=== PATIENT | female | born 2000 | race American Indian/Alaskan Native ===

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

== ENCOUNTER 2018-08-25 21:24 | Outpatient (CLI) | payer MEDICAID ==
[2018-08-25] MEDS ORDERED: LACTATED RINGERS 1,000 ML IV ONE (21:56)
[2018-08-25 22:12] LABS: Bilirubin,Urine NEG (Negative); Blood,Urine NEG (Negative); Color,Urine Yellow (Yellow); Protein,Urine <15 mg/dL mg/dL (Negative); Urobilinogen,Urine < 2.0 mg/dL (<2.0)
[2018-08-25] MEDS ORDERED: BRETHINE ONE (23:20)
[2018-08-25] MEDS: BRETHINE SUB-Q SCH (23:28)
[2018-08-25] MEDS ORDERED: LACTATED RINGERS 1,000 ML IV SCH (23:45)
[2018-08-26] MEDS: BRETHINE SUB-Q SCH
[2018-08-26 19:47] VITALS: BP 127/69
[2018-08-26] MEDS ORDERED: BRETHINE ONE (23:00)
== END 2018-08-26 01:30 | disposition home or self-care (01) ==
LOC: TRG 21:24
PROVIDERS: ATTEND Obstetrics & Gynecology
DX: O26.893 Other specified pregnancy related conditions, third trimester (principal); R10.9 Unspecified abdominal pain; M54.5 Low back pain; Z3A.33 33 weeks gestation of pregnancy
CPT/HCPCS: 59025; 81001; 96360; 96361; 96372; J3105; J7120

== ENCOUNTER 2018-08-27 12:33 | Outpatient (CLI) | payer MEDICAID ==
[2018-08-27] MEDS ORDERED: LACTATED RINGERS 1,000 ML IV ONE ×2 (12:51→14:11)
[2018-08-27 13:30] LABS: Bacteria,Urine 1+ /HPF (Negative); Bilirubin,Urine NEG (Negative); Blood,Urine NEG (Negative); Color,Urine Yellow (Yellow); Mucus,Urine FEW /HPF; Protein,Urine <15 mg/dL mg/dL (Negative); Urobilinogen,Urine < 2.0 mg/dL (<2.0)
[2018-08-27] MEDS ORDERED: ceFAZolin 2 GM in NACL 0.9% 100 ML IV ONE (14:55)
[2018-08-27] MEDS ORDERED: PROCARDIA*For Tocolysis only PO SCH ×2 (15:00→17:00)
[2018-08-27] MEDS ORDERED: ANCEF/STERILE WATER 2 GM/20 ML 2 GM/20 ML SYRINGE IV ONE (16:00)
[2018-08-27 18:00] VITALS: BP 123/81
== END 2018-08-27 18:23 | disposition home or self-care (01) ==
LOC: TRG 12:33
PROVIDERS: ATTEND Obstetrics & Gynecology
DX: O62.9 Abnormality of forces of labor, unspecified (principal); O99.513 Diseases of the respiratory system complicating pregnancy, third trimester; J45.909 Unspecified asthma, uncomplicated; O99.343 Other mental disorders complicating pregnancy, third trimester; F31.9 Bipolar disorder, unspecified; O99.613 Diseases of the digestive system complicating pregnancy, third trimester; K21.9 Gastro-esophageal reflux disease without esophagitis; Z3A.33 33 weeks gestation of pregnancy
CPT/HCPCS: 81001; 96360; 96361; J7120

== ENCOUNTER 2018-09-09 22:57 | Observation (INO) | payer MEDICAID ==
[2018-09-09] MEDS ORDERED: LACTATED RINGERS 1,000 ML IV ONE (23:17)
[2018-09-09 23:43] LABS: Bilirubin,Urine NEG (Negative); Blood,Urine NEG (Negative); Color,Urine Straw (Yellow); Protein,Urine <15 mg/dL mg/dL (Negative); Urobilinogen,Urine < 2.0 mg/dL (<2.0)
--- NOTE | 2018-09-10 01:04 | Ultrasound Report ---
PROCEDURE: US OB LIMITED TECHNIQUE: A limited transabdominal OB sonogram was obtained for evaluation of the placenta. HISTORY: s/p fall- lower left abdominal pain COMPARISONS: None FINDINGS: The placenta is anterior in position and is grade 1. There is no evidence of placental abruption or i njury.. The fetus is in cephalic presentation. The heart rate is 140 BPM. IMPRESSION: No evidence of placental abruption or injury.. This document is electronically signed by Trey Lima MD., Sep 10 2018 01:02:12 AM ET
--- NOTE | 2018-09-10 01:05 | Ultrasound Report ---
PROCEDURE: US OB BPP WO NON-STRESS TECHNIQUE: A limited OB sonogram was obtained for evaluation of the biophysical profile. HISTORY: s/p fall- lower left abdominal pain COMPARISONS: None FINDINGS: For breathing movements, a score of 2 out of 2 was obtained. For movements, a score of 2 out of 2 was obtained. For posture and tone, a score of 2 out of 2 was obtained. Qualitative amniotic fluid, a score of 2 out of 2 was obtained. The heart rate is 140 BPM. IMPRESSION: Biophysical profile score is 8 out of 8.. This document is electronically signed by Trey Lima MD., Sep 10 2018 01:03:23 AM ET
[2018-09-10] MEDS ORDERED: COLACE PO PRN (01:07)
[2018-09-10] MEDS ORDERED: TYLENOL PO PRN (01:07)
[2018-09-10] MEDS ORDERED: PROCARDIA*For Tocolysis only PO SCH (02:00)
[2018-09-10] MEDS ORDERED: LACTATED RINGERS 1,000 ML IV SCH (02:00)
[2018-09-10 02:01] LABS: Basophils % (Auto) 0.3 % (0.0-1.8); Eosinophils % (Auto) 0.6 % (0.0-4.3); Hematocrit 35.7 % (30.3-42.9); Hemoglobin 12.1 gm/dl (10.1-14.3); Lymphocytes # (Auto) 1.9 K/mm3 (1.2-5.4); Lymphocytes % (Auto) 26.9 % (13.4-35.0); Mean Corpuscular HGB Conc 34 % (30-34); Mean Corpuscular Volume 92 fl (79-97); Monocytes # (Auto) 0.6 K/mm3 (0.0-0.8); Monocytes % (Auto) 8.9 % (0.0-7.3); Platelet Count 190 K/mm3 (140-440); Red Blood Count 3.86 M/mm3 (3.65-5.03); Red Cell Distribution Width 14.5 % (13.2-15.2)
[2018-09-10 09:56] VITALS: BP 129/80
[2018-09-10] MEDS ORDERED: PRENATAL VITAMIN PO SCH (10:00)
== END 2018-09-10 10:09 | disposition left against medical advice (07) ==
LOC: TRG 22:57 → LD 09-10 01:55
PROVIDERS: ADMIT Obstetrics & Gynecology; ATTEND Obstetrics & Gynecology
DX: O26.893 Other specified pregnancy related conditions, third trimester (principal); R10.30 Lower abdominal pain, unspecified; Z3A.35 35 weeks gestation of pregnancy
CPT/HCPCS: 36415; 76815; 76819; 81001; 85025; 86592; 86850; 86870; 86900; 86901; G0378; J7120

== ENCOUNTER 2018-09-23 13:23 | Inpatient (IN) | payer MEDICAID ==
[2018-09-23] MEDS ORDERED: LACTATED RINGERS 1,000 ML ONE ×2 (14:05→14:57)
[2018-09-23] MEDS ORDERED: AMPICILLIN/NS 2 GM/100 ML 0 GM/0 ML BAG IV ONE (14:05)
[2018-09-23 14:32] LABS: Hemoglobin 13.1 gm/dl (10.1-14.3); Mean Corpuscular HGB Conc 34 % (30-34); Mean Corpuscular Volume 92 fl (79-97); Red Blood Count 4.15 M/mm3 (3.65-5.03); Red Cell Distribution Width 14.9 % (13.2-15.2)
[2018-09-23] MEDS ORDERED: AMPICILLIN/NS 2 GM/100 ML 2 GM/100 ML BAG IV ONE ×2 (14:35→17:32)
[2018-09-23] MEDS ORDERED: SUBLIMAZE IV PRN (14:39)
[2018-09-23 15:17] LABS: Platelet Count 201 K/mm3 (140-440)
[2018-09-23] MEDS ORDERED: NARCAN 2 MG/2 ML IV PRN (15:19)
--- NOTE | 2018-09-23 15:24 | Anesthesia Consultation ---
Anesthesia Consult and Med Hx - Airway Anesthetic Teeth Evaluation: Good ROM Head & Neck: Adequate Mental/Hyoid Distance: Adequate Mallampati Class: Class I Intubation Access Assessment: Probably Good - Pulmonary Exam CTA: Yes - Cardiac Exam Cardiac Exam: RRR - Pre-Operative Health Status ASA Pre-Surgery Classification: ASA2 Proposed Anesthetic Plan: Epidural - Pulmonary Hx Asthma: Yes (last asthma attack age 13) COPD: No - Cardiovascular System Hx Hypertension: No - Central Nervous System Hx Seizures: No Hx Psychiatric Problems: Yes (depression) - Endocrine Hx Renal Disease: No Hx End Stage Renal Disease: No Hx Hypothyroidism: No Hx Hyperthyroidism: No - Hematic Hx Anemia: No Hx Sickle Cell Disease: No - Other Systems Hx Alcohol Use: No - Additional Comments Anesthesia Medical History Comments: jerricas
--- NOTE | 2018-09-23 15:24 | Anesthesia Day of Surgery ---
Anesthesia Day of Surgery - Day of Surgery Patient Examined: Yes Patient H&P Reviewed: Yes Patient is NPO: Yes Beta Blockers: No Cardiac Clearance: No Pulmonary Clearance: No Marquise's Test: N/A
[2018-09-23] MEDS ORDERED: MARCAINE 0.25% INFILTRATI ONE (15:27)
--- NOTE | 2018-09-23 15:32 | History and Physical Report ---
History of Present Illness Date of admission: 09/23/18 13:31 Chief complaint: uterine contractions History of present illness: 17yo at 37 3/7weeks presented to L&D in labor dilated /-2, bulging membranes. She reports good movement and no loss of fluid. Blood show is evident on exam. She is a patient of [facility]. This has been complicated with IUGR. The patient states her estimated weight on US was 5lb 8oz. She is GBS+ and HSV2. She denies any recent outbreaks. Past History - Obstetrical History : 2 Medications and Allergies Allergies Allergy/AdvReac Type Severity Reaction Status Date / Time No Known Allergies Allergy Verified 09/23/18 14:10 Home Medications Medication Instructions Recorded Confirmed Last Taken Type Vit,Calc76/Iron/Folic 1 tab PO DAILY 08/25/18 08/25/18 09/09/18 History [Pnv 29-1 Tablet] NIFEdipine [Procardia] 20 mg PO 09/09/18 09/08/18 History Active Meds: Active Medications Ephedrine Sulfate (Ephedrine Sulfate) 10 mg IV Q2M PRN PRN Reason: Hypotension Fentanyl (Sublimaze) 100 mcg IV Q2H PRN PRN Reason: Labor Pain Last Admin: 09/23/18 14:50 Dose: 100 mcg Documented by: Fentanyl/Bupivacaine/Sodium Chlor (Fentanyl-Bupiv 2 Mcg/Ml-0.125%) 200 mcg in 100 mls @ 12 mls/hr EPIDURAL TITR MARVIN; Protocol Naloxone HCl (Narcan 2 Mg/2 Ml) 0.2 mg IV Q5M PRN PRN Reason: Respiratory sedation - Vital Signs Vital signs: Vital Signs Temp Pulse Resp BP 98.0 F 81 20 135/89 09/23/18 14:10 09/23/18 14:10 09/23/18 14:10 09/23/18 14:10 Temp Pulse Resp BP Pulse Ox 98.0 F 93 H 20 135/89 98 09/23/18 14:10 09/23/18 15:26 09/23/18 14:50 09/23/18 14:34 09/23/18 15:26 - Physical Exam Vulva: both: normal (no vesicular lesions or ulcerations noted ) - Obstetrical FHR: auscultation normal Cervical Dilatation: 6 Cervical Effacement Percentage: 80 station: -2 Uterine Contraction Pattern: Regular Results Result Diagrams: 09/23/18 13:40 All other labs normal. Assessment and Plan - Patient Problems (1) 37 weeks gestation of Current Visit: Yes Status: Acute Plan to address problem: Routine labs IVF Pelvic exam indicated no vaginal lesions. Anticipate (2) IUGR (intrauterine growth restriction) Current Visit: Yes Status: Acute Plan to address problem: Plan NICU present for delivery. (3) Positive GBS test Current Visit: Yes Status: Acute Plan to address problem: Ampicillin ordered. (4) Teen Current Visit: Yes Status: Acute
[2018-09-23] MEDS ORDERED: fentaNYL-BUPIV 2 MCG/ML-0.125% 200 MCG/100 ML BAG EPIDURAL SCH (16:00)
[2018-09-23] MEDS ORDERED: XYLOCAINE 2% INFILTRATI ONE (17:32)
[2018-09-23] MEDS ORDERED: BRETHINE SUB-Q PRN (17:32)
[2018-09-23] MEDS ORDERED: MINERAL OIL PO PRN (17:32)
[2018-09-23] MEDS ORDERED: LACTATED RINGERS 1,000 ML IV SCH ×2 (18:00)
[2018-09-23] MEDS ORDERED: AMPICILLIN/NS 1 GM/50 ML 1 GM/50 ML BAG IV SCH (19:00)
[2018-09-23] MEDS ORDERED: XYLOCAINE 2%/ EPI 1:200,000 INFILTRATI ONE (19:41)
--- NOTE | 2018-09-23 22:09 | Procedure Note ---
OB Delivery Note - Delivery Surgeon: RICHARD GREEN Estimated blood loss: other (150cc) - Vaginal Delivery presentation: vertex Delivery position: OA Delivery induction: none Delivery augmentation: rupture of membranes Delivery monitor: external FHT Route of delivery: Delivery placenta: uterine exploration, other (small amount of trailing membrane retracted into uterus with attempt of manual removal) Episiotomy: none Delivery laceration: none Anesthesia: epidural Delivery comments: delivered, bulb suctioned and noted to spontaneously cry. scalp electrode cut at distal cord. Male infant placed on maternal abdomen and dried by nursing staff. Infant vigorous. Cord clamped x 2 and cut by maternal grandmother. Patient and grandmother made aware of trailing membranes on exam. Intrauterine bimanual exam done and no membranes palpated or recovered from uterus. Will place on Methergine oral dose to facilitate delivery of any retained membranes. - A at 1 minute: 8 at 5 minutes: 9 Infant Gender: Male (Weight 5lb 11 oz, 2592g)
[2018-09-23] MEDS: PITOCin/NS 20 UNIT/1000ML DRIP 20 UNITS/1,000 ML BAG IV SCH ×2 (22:15→23:09)
[2018-09-23] MEDS ORDERED: TUCKS PAD TP PRN (22:20)
[2018-09-23] MEDS ORDERED: LANSINOH TP PRN (22:20)
[2018-09-23] MEDS ORDERED: BENADRYL PO PRN (22:20)
[2018-09-23] MEDS ORDERED: DULCOLAX PR PRN (22:20)
[2018-09-23] MEDS ORDERED: TYLENOL PO PRN (22:20)
[2018-09-23] MEDS ORDERED: MILK OF MAGNESIA PO PRN (22:20)
[2018-09-23] MEDS ORDERED: PHENERGAN PO PRN (22:20)
[2018-09-23] MEDS ORDERED: ZOFRAN IV PRN (22:20)
[2018-09-23] MEDS ORDERED: COLACE PO PRN (22:20)
[2018-09-23] MEDS ORDERED: SODIUM CHLORIDE FLUSH SYRINGE 10 ML IV PRN (23:00)
[2018-09-24] MEDS: IBUPROFEN PO SCH ×4 (00:26→18:44)
[2018-09-24] MEDS: METHERGINE PO SCH ×3 (00:27→06:17)
--- NOTE | 2018-09-24 10:13 | Progress Note ---
Assessment and Plan - Patient Problems (1) (normal spontaneous vaginal delivery) Current Visit: Yes Status: Acute Plan to address problem: Continue routine PP orders Anticipate d/c home in 24-48 hrs (2) Teen Current Visit: Yes Status: Acute Subjective - Subjective Date of service: 09/24/18 Principal diagnosis: Normal labor Interval history: See admission H & P and OB delivery summary Patient reports: appetite normal, voiding normally, pain well controlled, flatus, ambulating normally, other (States that bleeding is minimal.), no bowel movement [place]: doing well, bottle feeding (and bottlefeeding) Objective - Vital Signs Latest vital signs: Vital Signs Temp Pulse Resp BP BP Pulse Ox 09/24/18 08:34 98.2 F 71 18 119/81 100 09/24/18 03:45 98.2 F 88 18 118/60 09/23/18 23:40 98.8 F 88 18 143/85 99 09/23/18 23:11 90 99 09/23/18 23:06 94 H 99 09/23/18 23:01 87 99 09/23/18 22:56 94 H 99 09/23/18 22:51 96 H 99 09/23/18 22:46 99 H 99 09/23/18 22:41 111 H 98 09/23/18 22:36 95 H 144/80 98 09/23/18 22:31 106 H 98 09/23/18 22:26 105 H 98 09/23/18 22:21 109 H 141/91 99 09/23/18 22:16 102 H 99 09/23/18 22:13 100 H 144/99 09/23/18 22:11 98.4 F 97 H 18 144/99 100 09/23/18 22:06 119 H 99 09/23/18 22:05 110 H 129/101 09/23/18 21:51 50 L 80 L 09/23/18 21:42 110 H 99 09/23/18 21:37 97 H 100 09/23/18 21:36 101 H 154/97 09/23/18 21:32 106 H 100 09/23/18 21:27 104 H 100 09/23/18 21:22 108 H 100 09/23/18 21:17 109 H 99 09/23/18 21:12 113 H 99 09/23/18 21:07 116 H 134/93 100 05/14/19 21:02 109 H 100 09/23/18 20:57 102 H 100 05 20:52 102 H 99 09/23/18 20:47 107 H 100 09/23/18 20:42 104 H 99 09/23/18 20:37 101 H 99 09/23/18 20:34 101 H 133/77 09/23/18 20:32 104 H 99 09/23/18 20:27 100 H 100 09/23/18 20:22 89 100 05 20:17 93 H 100 09/23/18 20:12 102 H 98 09/23/18 20:07 104 H 99 09/23/18 20:06 104 H 126/79 09/23/18 20:02 106 H 99 09/23/18 19:57 105 H 98 09/23/18 19:52 95 H 100 09/23/18 19:47 120 H 99 09/23/18 19:42 102 H 100 09/23/18 19:39 100 H 82 L 09/23/18 19:37 118 H 99 09/23/18 19:32 98 H 99 09/23/18 19:31 98.0 F 101 H 18 134/84 99 09/23/18 19:30 83 134/84 09/23/18 19:18 104 H 99 09/23/18 19:16 78 126/88 87 09/23/18 19:13 120 H 98 09/23/18 19:08 104 H 99 09/23/18 19:03 107 H 99 09/23/18 19:00 87 130/91 09/23/18 18:58 110 H 100 09/23/18 18:53 101 H 99 09/23/18 18:48 102 H 99 09/23/18 18:45 96 H 138/88 09/23/18 18:43 103 H 98 05 18:38 88 100 05 18:33 90 99 05 18:29 105 H 144/97 09/23/18 18:28 100 H 96 09/23/18 18:23 89 100 0514 18:18 89 99 09/23/18 18:15 93 H 152/85 09/23/18 18:13 85 100 05 18:09 96.7 F L 09/23/18 18:08 82 100 09/23/18 18:03 90 100 09/23/18 18:00 86 136/80 09/23/18 17:58 86 99 09/23/18 17:53 72 100 09/23/18 17:48 79 99 09/23/18 17:41 82 100 09/23/18 17:36 84 100 09/23/18 17:31 76 100 09/23/18 17:30 72 125/64 09/23/18 17:28 88 93 09/23/18 17:26 83 100 09/23/18 17:21 80 100 09/23/18 17:16 71 100 09/23/18 17:14 77 126/81 09/23/18 17:11 77 100 09/23/18 17:06 82 100 09/23/18 17:01 61 100 09/23/18 16:59 62 118/70 09/23/18 16:56 78 100 09/23/18 16:51 61 100 09/23/18 16:46 95 H 100 09/23/18 16:44 80 135/78 09/23/18 16:41 76 100 09/23/18 16:36 79 100 09/23/18 16:31 91 H 100 09/23/18 16:26 92 H 100 09/23/18 16:24 101 H 120/79 09/23/18 16:21 107 H 123/77 98 09/23/18 16:16 99 H 98 09/23/18 16:14 97 H 113/65 09/23/18 16:11 105 H 100 09/23/18 16:09 100 H 105/59 09/23/18 16:06 111 H 99 09/23/18 16:05 103 H 117/79 09/23/18 16:01 104 H 108/64 99 09/23/18 16:00 96.6 F L 09/23/18 15:59 92 H 125/70 05 15:57 82 116/65 09/23/18 15:56 91 H 99 09/23/18 15:55 95 H 132/74 14 15:53 82 120/72 0514 15:51 70 128/76 99 09/23/18 15:49 71 130/76 05/14/19 15:47 65 143/88 09/23/18 15:46 71 98 09/23/18 15:45 71 141/93 09/23/18 15:43 67 125/74 09/23/18 15:41 78 98 09/23/18 15:37 78 146/91 09/23/18 15:36 68 149/92 99 09/23/18 15:31 73 99 09/23/18 15:29 28 L 74 L 09/23/18 15:26 93 H 98 09/23/18 14:50 20 09/23/18 14:34 81 135/89 09/23/18 14:10 98.0 F 81 20 135/89 Intake and Output 09/23/18 09/24/18 09/24/18 23:59 07:59 15:59 Intake Total 112.5 240 480 Output Total 150 2050 Balance -37.5 -1810 480 Intake: IV 112.5 PITOCin/NS 20 UNIT/1000ML 112.5 DRIP 20 units In 1,000 ml @ 125 mls/hr IV DIRECT MARVIN Rx#:[id number] Oral 240 480 Output: Urine 150 0 Indwelling Catheter 100 Uretheral (Pak) 50 Void 2049 Other: Total, Intake Amount 240 480 Total, Output Amount 100 400 Estimated Blood Loss 150 - Exam Breasts: Present: normal Cardiovascular: Present: Regular rate Lungs: Present: Normal air movement Abdomen: Present: soft, normal bowel sounds Uterus: Present: firm, fundal height below umbilicus (U-1) Extremities: Present: normal Deep Tendon Reflex Grade: Normal +2
[2018-09-24 11:06] LABS: Hematocrit 32.3 % (30.3-42.9)
[2018-09-25] MEDS: IBUPROFEN PO SCH ×2 (06:00)
--- NOTE | 2018-09-25 14:47 | Progress Note ---
Assessment and Plan (1) (normal spontaneous vaginal delivery) Current Visit: Yes Status: Acute Plan to address problem: Continue routine PP orders Anticipate d/c home today Depo Provera for contraception. Desires to start at 6 weeks (2) Teen Current Visit: Yes Status: Acute Subjective - Subjective Date of service: 09/25/18 Principal diagnosis: PPD#1 s/p Interval history: See H&P and delivery note Patient reports: appetite normal, voiding normally, pain well controlled, flatus, ambulating normally : doing well Objective - Vital Signs Latest vital signs: Vital Signs Temp Pulse Resp BP BP Pulse Ox 09/25/18 08:22 98.6 F 88 20 118/75 98 09/25/18 00:52 98.1 F 20 119/80 09/25/18 00:50 98.1 F 77 20 119/80 09/24/18 15:35 98.2 F 77 20 127/80 Intake and Output 09/24/18 09/25/18 09/25/18 23:59 07:59 15:59 Intake Total 320 720 Balance 320 720 Intake: Oral 320 Intake, Free Water 720 Other: Total, Intake Amount 320 # Voids Void 1 1 # Bowel Movements 1 - Exam Breasts: Present: normal Cardiovascular: Present: Regular rate, Normal S1, Normal S2, No murmurs Lungs: Present: Clear to auscultation, Normal air movement Abdomen: Present: normal appearance, soft, normal bowel sounds. Absent: distention Vulva: both: normal Uterus: Present: firm, fundal height at umbilicus Extremities: Present: normal Deep Tendon Reflex Grade: Normal +2
--- NOTE | 2018-09-25 14:49 | Discharge Summary ---
Providers - Providers Date of Admission: 09/23/18 13:31 Date of discharge: 09/25/18 Attending physician: RICHARD GREEN Primary care physician: RICHARD GREEN Hospitalization Reason for admission: active labor, IUP at term Delivery: Procedure details: See delivery note Episiotomy: none Laceration: none Other procedures: none complications: none Discharge diagnosis: IUP at term delivered [place] baby: male Condition at discharge: Good Disposition: DC-01 TO HOME OR SELFCARE Plan - Provider Discharge Summary Activity: routine, no sex for 6 weeks, no heavy lifting 4 weeks, no strenuous exercise Diet: routine Instructions: routine Additional instructions: [] Smoking cessation referral if applicable(refer to patient education folder for contact #) [] Refer to [facility]'s [facility] Booklet Call your doctor immediately for: * Fever > 100.5 * Heavy vaginal bleeding ( >1 pad per hour) * Severe persistent headache * Shortness of breath * Reddened, hot, painful area to leg or breast * Drainage or odor from incision. * Keep incision clean and dry at all times and follow doctor's instructions regarding bathing/showering - Follow up plan Follow up: RICHARD GREEN MD [Primary Care Provider] - 6 Weeks
[2018-09-25 16:51] VITALS: BP 122/78
== END 2018-09-25 16:55 | disposition home or self-care (01) | DRG 775 ==
LOC: TRG 13:23 → LD 13:31 → OB 23:44
PROVIDERS: ADMIT Obstetrics & Gynecology; ATTEND Obstetrics & Gynecology
PROC: 10E0XZZ Delivery of Products of Conception, External Approach (ICD-10-PCS; principal; 2018-09-23)
PROC: 3E0R3BZ Introduction of Anesthetic Agent into Spinal Canal, Percutaneous Approach (ICD-10-PCS; 2018-09-23)
PROC: 00HU33Z Insertion of Infusion Device into Spinal Canal, Percutaneous Approach (ICD-10-PCS; 2018-09-23)
PROC: 3E0334Z Introduction of Serum, Toxoid and Vaccine into Peripheral Vein, Percutaneous Approach (ICD-10-PCS; 2018-09-24)
DX: O99.824 Streptococcus B carrier state complicating childbirth (principal); O36.5930 Maternal care for other known or suspected poor fetal growth, third trimester, not applicable or unspecified; Z3A.37 37 weeks gestation of pregnancy; Z37.0 Single live birth; O99.52 Diseases of the respiratory system complicating childbirth; O99.62 Diseases of the digestive system complicating childbirth; O99.344 Other mental disorders complicating childbirth; J45.909 Unspecified asthma, uncomplicated; F32.9 Major depressive disorder, single episode, unspecified; K50.90 Crohn's disease, unspecified, without complications; O26.893 Other specified pregnancy related conditions, third trimester; Z67.41 Type O blood, Rh negative
CPT/HCPCS: 36415; 85014; 85018; 85027; 85461; 86592; 86850; 86870; 86900; 86901; 88307; G0378; J0290; J2590; J2790; J3010; J3105; J7120